=== PATIENT | female | born 1995 | race Caucasian/White ===

== ENCOUNTER 2017-09-27 12:59 | Emergency (ER) | payer BC ==
[~2017-09-27] VITALS: Ht 154.9 cm; Wt 58.2 kg
[2017-09-27] MEDS ORDERED: DiphenhydrAMINE HCL 50 MG/ML VIAL IM ONE (13:45)
[2017-09-27 14:02] VITALS: BP 130/84
== END 2017-09-27 14:20 | disposition home or self-care (01) ==
LOC: EMS 13:02
DX: B86 Scabies (principal); Z88.6 Allergy status to analgesic agent
CPT/HCPCS: 96372; 99283; J1200

== ENCOUNTER 2017-10-25 22:03 | Emergency (ER) | payer BC ==
[~2017-10-25] VITALS: Ht 154.9 cm; Wt 58.2 kg
[2017-10-25 23:21] VITALS: BP 128/75
[2017-10-25] MEDS ORDERED: ACETAMINOPHEN/CODEINE 300-30 MG TABLET PO ONE (23:45)
== END 2017-10-26 00:01 | disposition home or self-care (01) ==
LOC: EMS 22:03
DX: S63.614A Unspecified sprain of right ring finger, initial encounter (principal); W23.0XXA Caught, crushed, jammed, or pinched between moving objects, initial encounter; Y93.89 Activity, other specified; Y92.69 Other specified industrial and construction area as the place of occurrence of the external cause; Y99.0 Civilian activity done for income or pay
CPT/HCPCS: 29280; 99284

== ENCOUNTER 2017-10-29 09:46 | Emergency (ER) | payer BC ==
[~2017-10-29] VITALS: Ht 154.9 cm; Wt 58.6 kg
[2017-10-29 13:04] VITALS: BP 125/79
== END 2017-10-29 13:07 | disposition home or self-care (01) ==
LOC: EMS 09:47
DX: S63.614A Unspecified sprain of right ring finger, initial encounter (principal); Z02.89 Encounter for other administrative examinations; Z88.6 Allergy status to analgesic agent; Z88.8 Allergy status to other drugs, medicaments and biological substances; X58.XXXA Exposure to other specified factors, initial encounter; Y93.89 Activity, other specified; Y92.89 Other specified places as the place of occurrence of the external cause; Y99.8 Other external cause status
CPT/HCPCS: 99281

== ENCOUNTER 2018-04-09 20:18 | Emergency (ER) | payer BC ==
[~2018-04-09] VITALS: Ht 154.9 cm; Wt 58.2 kg
[2018-04-09 21:02] LABS: APPEARANCE,URINE CLEAR (CLEAR); BILIRUBIN,URINE NEGATIVE (NEGATIVE); GLUCOSE, URINE (UA) NEGATIVE (NEGATIVE); KETONES,URINE NEGATIVE (NEGATIVE); LEUKOCYTE ESTERASE ,URINE TRACE (NEGATIVE); NITRATE,URINE NEGATIVE (NEGATIVE); OCCULT BLOOD,URINE NEGATIVE (NEGATIVE); PH,URINE 6.5 (5.0-8.0); PROTEIN,URINE NEGATIVE (NEGATIVE); UROBILINOGEN,URINE 0.2 mg/dL (<=1.0)
[2018-04-09 21:23] LABS: BACTERIA,URINE Rare /HPF (None Seen); RBC,URINE 0-2 /HPF (0-2); SQUAMOUS EPITHELIAL CELL,UR Few /LPF (None Seen)
[2018-04-09 21:58] VITALS: BP 133/74
== END 2018-04-09 21:59 | disposition home or self-care (01) ==
LOC: EMS 20:19
DX: N34.2 Other urethritis (principal); R03.0 Elevated blood-pressure reading, without diagnosis of hypertension; D68.0 Von Willebrand disease; Z88.8 Allergy status to other drugs, medicaments and biological substances
CPT/HCPCS: 99284

== ENCOUNTER 2020-04-17 12:00 | Emergency (ER) | payer BC, MEDICAID ==
[~2020-04-17] VITALS: Ht 165.1 cm; Wt 54.5 kg
[2020-04-17 14:00] VITALS: BP 112/71
== END 2020-04-17 14:41 | disposition home or self-care (01) ==
LOC: EMS 12:01
DX: S92.351A Displaced fracture of fifth metatarsal bone, right foot, initial encounter for closed fracture (principal); Z88.6 Allergy status to analgesic agent; W17.89XA Other fall from one level to another, initial encounter; Y93.01 Activity, walking, marching and hiking; Y92.89 Other specified places as the place of occurrence of the external cause; Y99.8 Other external cause status

== ENCOUNTER 2020-05-06 15:34 | Emergency (ER) | payer MEDICAID ==
[~2020-05-06] VITALS: Ht 157.5 cm; Wt 58.6 kg
[2020-05-06 15:37] VITALS: BP 107/74
== END 2020-05-06 16:51 | disposition home or self-care (01) ==
LOC: EMS 15:34
DX: M79.671 Pain in right foot (principal); Z88.6 Allergy status to analgesic agent